=== PATIENT | female | born 1990 | race African-American/Black ===

== ENCOUNTER 2019-12-30 10:13 | Emergency (ER) | payer OTHER, SELFPAY ==
--- NOTE | ~2019-12-30 | CT_ITS ---
EXAMINATION: CT abdomen pelvis wo con DATE: 12/30/2019 11:27 INDICATION: Right flank pain. Hematuria. TECHNIQUE: Computed tomography (CT) of the abdomen and pelvis was performed without intravenous contr ast. Automated exposure control and iterative reconstruction technique were employed. The dose-length product was 1144.92 mGy-cm. COMPARISON: None. FINDINGS: The visualized portions of the lung bases demonstrate minimal atelectasis. No pleural effus ion. The heart size is normal. No pericardial effusion. The liver, gallbladder, spleen, pancreas, adr enal glands, and kidneys are normal. There is no urolithiasis. There are no dilated loops of bowel. T he appendix is normal. There are no pathologically enlarged lymph nodes. There is no free intraperito annelise fluid. There is mild thoracic spondylosis. There is mild chronic anterior wedging of T11-L1 vert ebral bodies, likely physiologic. IMPRESSION: 1. No urolithiasis. Reviewed, dictated and finalized at location A. IMPRESSION: 1. No urolithiasis.
[2019-12-30 10:18] VITALS: BP 112/74; PULSE 81; RESP 16; TEMP 36.8; O2SAT 98
--- NOTE | 2019-12-30 10:31 | ED.BACK ---
HPI - Back Pain/Injury General Chief Complaint: Back Pain/Injury Stated Complaint: LBP- SPOTTING WITH URINATION Time Seen by Provider: 12/30/19 10:16 Source: patient Mode of arrival: ambulatory Limitations: no limitations History of Present Illness HPI Narrative: This is a 29 year old female that presents to the ER for right sided low back pain x 4 days. No known injury or trauma. Reports the pain is sharp and intermittent. Relieved with rest. Reports she is a couple of days late on starting her cycle. Reports she had some light spotting this morning. Denies fever, abdominal pain, nausea, vomiting, dysuria, or hematuria. Related Data Allergies Allergy/AdvReac Type Severity Reaction Status Date / Time No Known Allergies Allergy Unverified 12/30/19 10:23 Review of Systems Review of Systems: Narrative: CONSTITUTIONAL: Denies fever GASTROINTESTINAL: Denies abdominal pain, nausea, vomiting GENITOURINARY: Denies dysuria or hematuria. MUSCULOSKELETAL: Reports back pain All systems reviewed & are unremarkable except as noted in HPI and below PMFSH Past Medical History Medical History (Updated 12/30/19 @ 11:48 by Gladys Evans PA-C) No active medical problems Social History Social History (Updated 12/30/19 @ 10:34 by Gladys Evans PA-C) Substance use: never Gender identity (if verbalized by the patient): Female Exam Narrative: Exam Narrative: GENERAL: Well-appearing, obese, and in no acute distress. HEAD: Normocephalic, atraumatic. EYES: EOMI. CHEST: Clear to auscultation. No respiratory distress. No wheezes rales or rhonchi HEART: Regular rate and rhythm. No murmur heard. Normal peripheral pulses. ABDOMEN: Soft, nontender, nondistended, normal active bowel sounds. No CVA tenderness BACK: No midline spinal tenderness. Tender to palpation of the latissimus dorsi musculature on the right EXTREMITIES: Normal range of motion. No edema. SKIN: Warm, dry, no rash. NEURO: No focal deficits. Alert and oriented x3. Normal gait PSYCH: Normal mood and affect Course Vital Signs Vital signs: Vital Signs Temperature 98.3 F 12/30/19 10:18 Pulse Rate 81 12/30/19 10:18 Respiratory Rate 16 12/30/19 10:18 Blood Pressure 112/74 12/30/19 10:18 Pulse Oximetry 98 12/30/19 10:18 Temperature 98.3 F 12/30/19 10:18 Pulse Rate 81 12/30/19 10:18 Respiratory Rate 16 12/30/19 10:18 Blood Pressure 112/74 12/30/19 10:18 Pulse Oximetry 98 12/30/19 10:18 MDM - Back Pain/Injury MDM Narrative Medical decision making narrative: Patient presents to the emergency department for right-sided mid back pain present for the last 4 days. No known injuries or trauma. Patient is neurologically intact. CBC and metabolic panel without concerning findings. Bedside test is negative. UA with 31-50 white blood cells and leuk esterase, also many squamous epithelial cells. Unsure if this was just not a clean-catch. This will go for culture. CT scan of the abdomen and pelvis is without acute findings. Patient will be started on oral antibiotics for possible urinary tract infection. Back pain is felt to be more muscular in origin. She does report relief with Tylenol. No CVA tenderness. Patient is stable and felt appropriate for further outpatient evaluation. She is to follow-up with primary care doctor. She was given warnings to return to the ER Lab Data Attestation: I reviewed the patient's lab results. Result diagrams: 12/30/19 10:32 12/30/19 10:32 Labs: Lab Results 12/30/19 12/30/19 12/30/19 Range/Units 10:32 10:32 10:32 WBC 5.1 (4.5-10.0) K/mm3 RBC 4.64 (4.2-5.4) M/mm3 Hgb 13.0 (12.0-15.0) g/dL Hct 39.9 (37.0-47.0) % MCV 86.0 (80-100) fl MCH 28.0 (26-34) pg MCHC 32.6 (32-36) g/dl RDW 14.8 H (11.5-14.5) % Plt Count 327 (150-375) k/mm3 MPV 10.5 H (7.4-10.4) fl Immature Gran % (Auto) 0.2 (0-0.5) % Neut % (Auto
[2019-12-30 10:40] LABS: Basophils Percent Auto 0.2 % (0.2-1.2); Eosinophils Percent Auto 0.4 % (0-4.4); Hematocrit 39.9 % (37.0-47.0); Immature Granulocyte Absolute 0.01 K/mm3 (0.00-0.031); Immature Granulocyte Percent A 0.2 % (0-0.5); Lymphocytes Absolute Auto 1.72 K/mm3 (0.9-3.2); Mean Corpuscular HGB Conc 32.6 g/dl (32-36); Mean Platelet Volume 10.5 fl (7.4-10.4); Monocytes Absolute Auto 0.4 K/mm3 (0.1-0.6); Monocytes Percent Auto 8.1 % (2.6-8.5); Neutrophils Absolute Auto 2.9 K/mm3 (1.3-6.7); Neutrophils Percent Auto 57.1 % (45.5-73.1); Platelet Count Result 327 k/mm3 (150-375); Red Blood Count 4.64 M/mm3 (4.2-5.4); Red Cell Distribution Width 14.8 % (11.5-14.5); White Blood Count 5.1 K/mm3 (4.5-10.0)
[2019-12-30 10:46] LABS: Add Urine Microscopic? YES; Appearance Urine Cloudy (Clear); Bacteria Urine Trace /hpf; Bilirubin Urine Negative (Negative); Blood Urine 2+ (Negative); Color Urine Yellow (Yellow); Glucose Urine UA Negative (Negative); Ketones Urine Negative (Negative); Leukocyte Esterase Ur 3+ LEU/UL (Negative); Mucus Urine Rare /lpf; Nitrate Urine Negative (Negative); Protein Urine Negative (Negative); Specific Grav Ur 1.017 (1.001-1.035); Squamous Epithelial Cell Urine Many /hpf (Few); Urobilinogen Urine Negative mg/dL (<2.0); WBC Urine 31-50 /hpf
[2019-12-30 10:51] LABS: Anion Gap 7 mmol/L (8-16); Blood Urea Nitrogen 8 mg/dL (7-17); Calcium 9.8 mg/dL (8.4-10.2); Carbon Dioxide 25 mmol/L (22-30); Chloride 104 mmol/L (98-107); Estimated Glomerular Filt Rate > 60; Glucose 65 mg/dL (65-105); Sodium 136 mmol/L (137-145)
[2019-12-30 11:12] LABS: Beta HCG Quantitative < 2.39 mIU/ML
== END 2019-12-30 11:57 | disposition home or self-care (01) ==
PROVIDERS: Physician Assistant; Emergency Provider Emergency Medicine
DX: M54.6 Pain in thoracic spine (principal); N30.01 Acute cystitis with hematuria
CPT/HCPCS: 36415; 74176; 80048; 81001; 81025; 84702; 85025; 87086; 87088; 96365; 99284; J0131

== ENCOUNTER 2020-04-09 20:29 | Emergency (ER) | payer OTHER, SELFPAY ==
--- NOTE | ~2020-04-09 | US_ITS ---
EXAMINATION: US OB <=14 wk fetus w TV DATE: 04/09/2020 23:28 INDICATION: Vaginal bleeding during first trimester of TECHNIQUE: Real-time pelvic ultrasound utilizing both a transvaginal and transabdominal probe was pe rformed. The interpreting radiologist was not present for the study. COMPARISON: None. FINDINGS: The uterus measures 10.9 x 6.8 x 5.6 cm. There is an intrauterine gestational sac. A yolk sac and fe mila pole are identified. The crown rump length measures 7-8 mm, which correlates with an estimated ge stational age of 6 weeks and 5 days. heart motion is identified measuring 121 beats per minute (bpm) by M-mode Doppler. Small hypoechoic subchorionic hematoma which measures 1.8 x 0.8 x 0.7 cm on the right side of the gestational sac. The right ovary measures 3.0 x 1.2 x 1.6 cm. The left ovary measures 2.9 x 2.2 x 2.5 cm. 2.1 cm perip herally hypoechoic, centrally hypoechoic likely corpus luteum cyst in the left ovary. Vascular flow i s identified at both ovaries on color Doppler. There is no free fluid in the pelvis. IMPRESSION: 1. Single living fetus with heart of 121 bpm. 2. Gestational age by ultrasound of 6 weeks 5 day(s) +/- 4 day(s) with ultrasound estimated date of d elivery (LEONARD) of 11/28/20. 3. Small subchorionic hematoma. Reviewed, dictated and finalized at location A. CT SUPPORT STAFF IMPRESSION: 1. Single living fetus with heart of 121 bpm. 2. Gestational age by ultrasound of 6 weeks 5 day(s) +/- 4 day(s) with ultrasou nd estimated date of delivery (LEONARD) of 11/28/20. 3. Small subchorionic hematoma.
[2020-04-09 20:31] VITALS: BP 146/67; PULSE 68; RESP 15; TEMP 36.4; O2SAT 100
[2020-04-09 20:55] LABS: Basophils Percent Auto 0.1 % (0.2-1.2); Eosinophils Percent Auto 0.3 % (0-4.4); Hematocrit 38.4 % (37.0-47.0); Hemoglobin 12.9 g/dL (12.0-15.0); Immature Granulocyte Absolute 0.02 K/mm3 (0.00-0.031); Immature Granulocyte Percent A 0.3 % (0-0.5); Lymphocytes Absolute Auto 2.62 K/mm3 (0.9-3.2); Mean Corpuscular HGB Conc 33.6 g/dl (32-36); Mean Corpuscular Hemoglobin 29.1 pg (26-34); Mean Corpuscular Volume 86.5 fl (80-100); Mean Platelet Volume 10.3 fl (7.4-10.4); Monocytes Absolute Auto 0.6 K/mm3 (0.1-0.6); Monocytes Percent Auto 8.5 % (2.6-8.5); Neutrophils Percent Auto 54.8 % (45.5-73.1); Platelet Count Result 300 k/mm3 (150-375); Red Blood Count 4.44 M/mm3 (4.2-5.4); Red Cell Distribution Width 14.4 % (11.5-14.5); White Blood Count 7.3 K/mm3 (4.5-10.0)
[2020-04-09 21:04] LABS: Add Urine Microscopic? YES; Amorphous Sediment Urine Few; Appearance Urine Turbid (Clear); Bacteria Urine 2+ /hpf; Bilirubin Urine Negative (Negative); Blood Urine 1+ (Negative); Color Urine Yellow (Yellow); Glucose Urine UA Negative (Negative); Ketones Urine Negative (Negative); Leukocyte Esterase Ur 3+ LEU/UL (Negative); Mucus Urine Few /lpf; Nitrate Urine Negative (Negative); Protein Urine 2+ mg/dL (Negative); RBC Urine 51-75 /hpf (0-2); Specific Grav Ur 1.027 (1.001-1.035); Squamous Epithelial Cell Urine Many /hpf (Few); Urobilinogen Urine Negative mg/dL (<2.0); WBC Urine 31-50 /hpf
--- NOTE | 2020-04-09 21:16 | ED.PREGNANCY ---
HPI - General Chief complaint: Vaginal Bleeding Stated complaint: ? Vaginal irritation, spotting Time Seen by Provider: 04/09/20 21:15 Source: patient Mode of arrival: ambulatory Limitations: no limitations History of Present Illness HPI Narrative: Patient is a 29-year-old G4, P3 currently approximately 6 to 7 weeks with last menstrual period in January who presents for evaluation of vaginal bleeding and vaginal discharge. Patient reports that she had a positive test in this emergency department today, she had no known history of . She denies fever or chills. She reports light spotting that is brownish in color as well as a thick, white vaginal discharge with some dysuria and irritation in the vagina. She denies history of sexually transmitted infection. She denies history of previous complication with aside from preeclampsia with her first . No history of section. She is monogamous with one partner. She has followed with [facility] [place] for previous pregnancies. Patient blood type is a positive, verified in EMR. Related Data Allergies Allergy/AdvReac Type Severity Reaction Status Date / Time No Known Allergies Allergy Unverified 12/30/19 10:23 Review of Systems Review of Systems: Narrative: CONSTITUTIONAL: Denies fever, chills, or sweats. ENT: Denies rhinorrhea, congestion, sore throat, or otalgia. CARDIOVASCULAR: Denies chest pain, palpitations, or edema. RESPIRATORY: Denies cough or dyspnea. GASTROINTESTINAL: Denies abdominal pain, nausea, vomiting, or diarrhea. GENITOURINARY: Reports dysuria, reports vaginal bleeding and vaginal irritation SKIN: Denies rash or itching. MUSCULOSKELETAL: Denies back pain, joint pain, or myalgia. NEUROLOGIC: Denies headache, numbness, or weakness. [facility] Past Medical History Medical History (Updated 04/10/20 @ 00:08 by Reina Berry MD) No active medical problems Surgical History Surgical History (Updated 04/09/20 @ 22:26 by Reina Berry MD) No pertinent past surgical history Social History Social History (Updated 04/09/20 @ 22:26 by Reina Berry MD) Smoking status: Never smoker Alcohol intake: never Substance use: never Living arrangements: with family Gender identity (if verbalized by the patient): Female Exam Narrative: Exam Narrative: GENERAL: Awake, alert, conversant HEAD: Normocephalic, atraumatic. EYES: PERRLA and EOMI. ENT: Nares clear, no rhinorrhea or epistaxis. Mucous membranes moist. NECK: Supple. CHEST: No respiratory distress, breathing even and non labored HEART: Regular rate, sinus rhythm ABDOMEN:Non distended, non tender : Labia majora and minora normal without lesions. Vagina with scant blood. No cervical motion tenderness. Cervix is not erythematous. There is thick white discharge. No adnexal tenderness or fullness bilaterally. EXTREMITIES: Normal range of motion. No edema. SKIN: Warm, dry, no rash. NEURO:No focal deficits. Alert and oriented x3 Course Vital Signs Vital signs: Vital Signs Temperature 36.4 C 04/09/20 20:31 Pulse Rate 68 04/09/20 20:31 Respiratory Rate 15 04/09/20 20:31 Blood Pressure 146/67 H 04/09/20 20:31 Pulse Oximetry 100 04/09/20 20:31 Temperature 36.4 C 04/09/20 20:31 Pulse Rate 65 04/09/20 22:17 Respiratory Rate 20 04/09/20 22:17 Blood Pressure 108/69 04/09/20 22:17 Pulse Oximetry 100 04/09/20 22:17 MDM - OB/Uterine Contractions MDM Narrative Medical decision making narrative: Patient presented for evaluation of vaginal bleeding in , dysuria. At the time of assessment, ABCs are intact and vital signs are stable. Pelvic exam notable for thick, white discharge present which may be consistent with Noelle versus bacterial vaginosis. Patient reports she is monogamous, unknown if there is history of chlamydia or gonorrhea although patient denies history of STI. No bris
[2020-04-09 22:17] VITALS: BP 108/69; PULSE 65; RESP 20; O2SAT 100
[2020-04-09] MEDS: SODIUM CHLORIDE 0.9% IV 1,000 ML 999 ML IV CONT (22:28)
[2020-04-09] MEDS: cefTRIAXone 250 MG VIAL IM (22:43)
--- NOTE | 2020-04-09 23:15 | PC.NURSE ---
Patient in US at this time.
== END 2020-04-10 00:48 | disposition home or self-care (01) ==
PROVIDERS: Emergency Medicine; Emergency Provider Emergency Medicine
DX: O23.11 Infections of bladder in pregnancy, first trimester (principal); Z3A.01 Less than 8 weeks gestation of pregnancy; O46.8X1 Other antepartum hemorrhage, first trimester; O41.8X10 Other specified disorders of amniotic fluid and membranes, first trimester, not applicable or unspecified
CPT/HCPCS: 36415; 76801; 76817; 81001; 84702; 85025; 87070; 87086; 87088; 87491; 87591; 87808; 96361; 96372; 96374; 99284; J0131; J0696; J7030